=== PATIENT | female | born 1980 | race Caucasian/White ===

== ENCOUNTER 2018-10-22 06:48 | Inpatient (IN) | payer OTHER ==
[2018-10-22 07:21] VITALS: BMI 32.9
--- NOTE | 2018-10-22 10:00 | PDOC.LDHP ---
Labor and Delivery H&P Chief complaint: contractions (Vaginal bleeding) HPI: 38 year old, membranes stripped yesterday, had some spotting/bleeding overnight , did take castor oil which caused diarrhea but not uterine contractions. Came in because of the bleeding. Current gestational age (weeks): 42 Due date: 10/08/18 Dating criteria: last menstrual period Grav: 6 Para: 3 OB History Details: Low-risk apart from AMA. Now post-dates. Current complications: none Abnormal US findings: No Current medications: pre- vitamins Previous surgical history: none Allergies/Adverse Reactions: Allergies Allergy/AdvReac Type Severity Reaction Status Date / Time iodine Allergy Verified 10/22/18 07:23 Social history: none - Physical Exam Vital signs reviewed and normal: yes General: NAD Heart: RRR Lungs: CTAB Abdomen: gravid Extremeties: no edema [place] contractions every: irregular - Vaginal Exam cm dilated: 6 Effacement: 75% Station: -2 - OB Labs Blood type: O RH: positive Antibody Screen: negative HIV: negative RPR: negative HEPSAg: negative 1 hour GCT: positive 3 hour GTT: 78/107/114/97 GBS: negative Urine drug screen: not done Rubella: immune - Assessment L&D Assessment: medically indicated induction (Post-dates. Discussed with patient and advanced cervical dilation and post-dates . They agreed to AROM. Would like to stay in the low-intervention room if possible.) - Plan Plan: admit to L&D, labor augmentation if indicated
[2018-10-22] MEDS ORDERED: Misoprostol 200 MCG TAB PR PRN (10:04)
[2018-10-22] MEDS ORDERED: Acetaminophen 500 MG TAB PO PRN (10:04)
[2018-10-22] MEDS ORDERED: Carboprost 250 MCG/ML AMP IM PRN (10:04)
[2018-10-22] MEDS ORDERED: Ondansetron PF 4 MG/2 ML Vial IVP PRN (10:04)
[2018-10-22] MEDS ORDERED: Ibuprofen 800 MG TAB PO PRN (10:04)
[2018-10-22] MEDS ORDERED: Promethazine HCl 25 MG/ML VIAL IM PRN (10:04)
[2018-10-22] MEDS ORDERED: hydrALAZINE 20 MG/ML VIAL SLOW IVP PRN (10:04)
[2018-10-22] MEDS ORDERED: Lidocaine 1% (PF) 30 ML VIAL SC PRN (10:04)
[2018-10-22] MEDS ORDERED: Methylergonovine 0.2 MG/ML VIAL IM PRN (10:04)
[2018-10-22] MEDS ORDERED: HYDROcodone/Acetaminophen 5/325 mg Tablet PO PRN (10:04)
[2018-10-22] MEDS ORDERED: Butorphanol Tartrate 1 MG/ML VIAL SLOW IVP PRN (10:04)
--- NOTE | 2018-10-22 10:09 | PDOC.EVN ---
Event Note - Event Note Event Note: Attempted AROM, tried with the hook and finger cot. BOW was palpable ahead of the vertex but I was not able to snag it to rupture. Each time I tried the membranes slipped away from the hook. SVE /-2. Advised to sit upright on the ball and see if we could get the BOW to bulge down some so I could try again after some time. FHT category I.
[2018-10-22] MEDS ORDERED: NS w/ Oxytocin 10 units 500 ML IV SCH (10:15)
[2018-10-22 11:05] LABS: Hemoglobin 14.6 g/dL (12.0-16.0); Mean Corpuscular HGB CONC 35.1 g/dL (32.0-36.0); Mean Corpuscular Hemoglobin 31.2 pg (27.0-31.0); Mean Corpuscular Volume 88.9 fL (78.0-98.0); Mean Platelet Volume 7.4 fL (7.4-10.4); Platelet Count 190 thou/uL (130-400); RBC Distribution Width 11.4 % (11.5-14.5); Red Blood Cell (RBC) Count 4.68 mill/uL (4.20-5.40); White Blood Cell (WBC) Count 7.9 thou/uL (4.8-10.8)
[2018-10-22 11:44] LABS: HBSAg Index 0.26 S/CO (0-0.99); Hep B Surf Ag Non-Reactive S/CO (NonReactive)
[2018-10-22 11:45] LABS: Syphilis Antibody Nonreactive (Nonreactive); Syphilis Antibody Index 0.04 S/CO (<1.00 Non-Reactive)
--- NOTE | 2018-10-22 16:25 | PDOC.EVN ---
Event Note - Event Note Event Note: AROM with scant clear fluid. No complications. SVE 6-7/75/-2. FHT category I. Continue intermittent monitoring. Discussed pitocin and that it may be needed still if no contractions after AROM. She agreed. Tried the breast pump and was able to get one small contraction each of 3 times she tried. Nothing consistent.
[2018-10-22] MEDS: NS / Oxytocin 40 units/1000ml 1,000 ML IV PRN ×2 (21:17→22:13)
--- NOTE | 2018-10-22 21:18 | PDOC.OPDEL ---
OB Operative/Delivery Note Delivery Dr/Surgeon: Enrique Pre-Delivery Diagnosis: active labor, medically indicated induction (Advanced cervical dilation, post-dates) Procedure/Post Delivery Dx: spontaneous vaginal delivery (Head OA, no nuchal cord, shoulders and body easily followed.) Weeks gestation: 42 Anesthesia: none - Findings A Sex: male - 1 min: 8 - 5 min: 9 - Additional Findings/Plan Placenta delivered: spontaneous (Spontaneous and intact. 3 vessel cord.) Repaired Obstetrical Laceration: none Estimated blood loss: 200 Post delivery plan: routine recovery
[2018-10-22] MEDS ORDERED: Misoprostol 200 MCG TAB ONE (21:31)
[2018-10-22] MEDS ORDERED: Methylergonovine 0.2 MG/ML VIAL ONE (21:31)
[2018-10-22] MEDS ORDERED: Carboprost 250 MCG/ML AMP ONE (21:32)
--- NOTE | 2018-10-22 21:46 | PDOC.EVN ---
Event Note - Event Note Event Note: Called to bedside for increased vaginal bleeding after delivery. Bimanual massage with evacuation of large clot. Fundus firm and 3 below umbilicus. Additional QBL 336, total including delivery 536 ml. Cytotec 1000mcg given rectally. Much better after the above interventions.
[2018-10-22 22:35] LABS: Fibrinogen 372 mg/dL (253-463); PTT 26.6 SEC (22.9-36.1); Prothrombin Time 13.4 SEC (12.0-14.7)
[2018-10-22 22:36] LABS: D-Dimer Test 1.57 *mcg/mL (0.27-0.43)
[2018-10-22 22:41] LABS: FSP-Qualitative Normal (Normal)
[2018-10-22 22:42] LABS: Platelet Count 157 thou/uL (130-400)
[2018-10-22 22:43] LABS: Hemoglobin 10.5 g/dL (12.0-16.0); Mean Corpuscular HGB CONC 35.2 g/dL (32.0-36.0); Mean Corpuscular Hemoglobin 31.4 pg (27.0-31.0); Mean Corpuscular Volume 89.3 fL (78.0-98.0); Mean Platelet Volume 6.8 fL (7.4-10.4); Platelet Count 157 thou/uL (130-400); RBC Distribution Width 11.4 % (11.5-14.5); Red Blood Cell (RBC) Count 3.35 mill/uL (4.20-5.40); White Blood Cell (WBC) Count 12.1 thou/uL (4.8-10.8)
[2018-10-22] MEDS ORDERED: Ampicillin/Sulbactam 3 GM in Sodium Chloride 0.9% 100 ML IVPB SCH (22:45)
--- NOTE | 2018-10-22 22:48 | PDOC.EVN ---
Event Note - Event Note Event Note: Called back to the room for another episode of increased vaginal bleeding. Large clot passed with the RN after fundal massage. On bimanual exam I evacuated another clot and a large piece of membrane. Methergine given in right thigh. Good response in bleeding after evacuation of the membranes. Second IV started and 1L of NS infused as a bolus. Second bag of pitocin started. Labs drawn for DIC panel, CBC, and type and cross. Vitals throughout were stable. No drop in BP but there was an increase in pulse to the 110's. That has now resolved and pulse is in the 80's, most recent BP 144/66, pulse 78. Patient is asymptomatic. No lightheadedness, no nausea, not feeling weak. Bleeding has slowed significantly. Total QBL at this time 768 ml. Hemorrhage protocol activated and followed. No transfusion needed at this time. Await lab results.
[2018-10-22] MEDS ORDERED: Piperacillin/Tazobactam 3.375 GM in Sodium Chloride 0.9% 100 ML IVPB SCH (23:45)
[2018-10-23] MEDS ORDERED: Bisacodyl 10 MG SUPP PR PRN (02:28)
[2018-10-23] MEDS ORDERED: Adacel (T-DAP) 0.5 ML SYRINGE IM ONE (02:28)
[2018-10-23] MEDS ORDERED: HYDROcodone/Acetaminophen 5/325 mg Tablet PO PRN (02:28)
[2018-10-23] MEDS ORDERED: Benzocaine-Menthol 82.5 ML CAN TOP PRN (02:28)
[2018-10-23] MEDS ORDERED: Milk Of Magnesia 30 ML UDCUP PO PRN (02:28)
[2018-10-23] MEDS ORDERED: Preparation H Ointment 28 GM TUBE PR PRN (02:28)
[2018-10-23] MEDS ORDERED: hydrALAZINE 20 MG/ML VIAL SLOW IVP PRN (02:28)
[2018-10-23] MEDS ORDERED: NS / Oxytocin 40 units/1000ml 1,000 ML IV SCH (02:28)
[2018-10-23] MEDS: Ibuprofen 800 MG TAB PO SCH ×2 (05:40→13:31)
[2018-10-23] MEDS ORDERED: Ferrous Sulfate 325 MG TAB PO SCH (08:00)
[2018-10-23] MEDS ORDERED: Docusate Calcium (SURFAK) 240 MG CAP PO SCH (09:00)
--- NOTE | 2018-10-23 13:13 | PDOC.PP ---
Post Progress Note Post Day #: 1 Subjective: Doing well. well. Bleeding is now scant. No s/s of hypovolemia. PO intake tolerated: yes Flatus: yes Ambulation: yes Vital Signs (12 hours) Temp Pulse Resp BP 10/23/18 08:30 98.8 F 59 L 16 138/80 Weight Weight 192 lb - Physical Examination General: NAD Cardiovascular: no m/r/g, RRR Respiratory: clear to auscultation bilaterally, non-labored breathing Abdominal: + bowel sounds, lochia, no distention, appropriately TTP Extremities: negative homans (B) Neurological: no gross focal deficits Psychiatric: A&Ox3 Result Diagrams: 10/22/18 22:13 Additional Labs: Post Labs Blood Type O POSITIVE 10/22/18 10:55 Hep Bs Antigen Non-Reactive S/CO (NonReactive) 10/22/18 10:55 (1) Vaginal delivery Code(s): O80 - ENCOUNTER FOR FULL-TERM UNCOMPLICATED DELIVERY Status: Acute (2) hemorrhage Code(s): O72.1 - OTHER IMMEDIATE HEMORRHAGE Status: Acute - Assessment/Plan Routine PP care May D/C home this evening if all remains well OK to D/C IV access at this time Bleeding scant, fundus firm
[2018-10-23 15:55] VITALS: BP 118/74; TEMP 98
== END 2018-10-23 22:36 | disposition home or self-care (01) | DRG 806 ==
LOC: L&D/OP 06:48 → L&D-LIB 09:55 → L&D 19:09
PROVIDERS: ADMIT Family Medicine; ATTEND Family Medicine
PROC: 10E0XZZ Delivery of Products of Conception, External Approach (ICD-10-PCS; principal; 2018-10-22)
PROC: 10907ZC Drainage of Amniotic Fluid, Therapeutic from Products of Conception, Via Natural or Artificial Opening (ICD-10-PCS; 2018-10-22)
PROC: 3E0P7VZ Introduction of Hormone into Female Reproductive, Via Natural or Artificial Opening (ICD-10-PCS; 2018-10-22)
PROC: 3E033VJ Introduction of Other Hormone into Peripheral Vein, Percutaneous Approach (ICD-10-PCS; 2018-10-22)
DX: O48.0 Post-term pregnancy (principal); O72.1 Other immediate postpartum hemorrhage; Z37.0 Single live birth; Z3A.42 42 weeks gestation of pregnancy
CPT/HCPCS: 36415; 85027; 85049; 85300; 85362; 85379; 85384; 85610; 85730; 86780; 86850; 86900; 86901; 87340; 99285; J2001; J2210; J2543; J2590; J3490